=== PATIENT | male | born 1965 | race African-American/Black ===

== ENCOUNTER 2020-11-15 07:03 | Inpatient (IN) | payer OTHER ==
[2020-11-15 07:52] VITALS: BMI 23.7
[2020-11-15 09:31] LABS: BASO % 1.8 % (0-2.0); EOS % 2.3 % (0-4.5); HEMATOCRIT 40.7 % (35.4-49); HEMOGLOBIN 13.9 GM/dL (11.7-16.9); MCH 30.8 pg (25.7-33.7); MCHC 34.2 g/dl (32.0-35.9); MEAN CELL VOLUME 90.1 fl (80-96); MEAN PLT VOLUME 7.7 fl (7.5-11.1); NEUT % 51.9 % (42.8-82.8); PLATELET COUNT 261 K/MM3 (134-434); RBC 4.52 M/mm3 (4.00-5.60); RDW 13.5 % (11.9-15.9)
[2020-11-15 09:39] LABS: INR 1.06 (0.83-1.09); PROTHROMBIN TIME (PATIENT) 12.8 SEC (9.7-13.0)
[2020-11-15 09:42] LABS: ACTIVATED PTT 30.9 SECONDS (25.2-36.5)
[2020-11-15 10:24] LABS: CHOLESTEROL 202 mg/dL (50-200); HDL CHOLESTEROL 63 mg/dL (40-60)
[2020-11-15 10:25] LABS: LDL CHOLESTEROL (ONLY SJRH) 115 mg/dL (5-100); TRIGLYCERIDES 65 mg/dL (0-150)
[2020-11-15 10:28] LABS: ALBUMIN 3.6 g/dl (3.4-5.0)
[2020-11-15 10:29] LABS: BLOOD UREA NITROGEN 10.2 mg/dL (7-18); CALCIUM 9.3 mg/dL (8.5-10.1)
[2020-11-15 10:31] LABS: CREATININE 0.7 mg/dL (0.55-1.3)
[2020-11-15 10:33] LABS: BILIRUBIN,TOTAL 0.5 mg/dL (0.2-1); TOT PROT 7.8 g/dl (6.4-8.2)
[2020-11-15] MEDS ORDERED: ATORVASTATIN CA 40 MG TABLET (FP) PO ONE (11:20)
[2020-11-15] MEDS ORDERED: ASPIRIN 81 MG CHEWABLE TABLETS PO ONE (11:20)
[2020-11-15] MEDS ORDERED: ASPIRIN 81 MG CHEWABLE TABLETS ONE (11:22)
[2020-11-15] MEDS ORDERED: ATORVASTATIN CA 80 MG TABLET (FP) ONE (11:22)
[2020-11-15] MEDS: ENOXAPARIN NA (PORCINE) 40 MG/0.4 ML DISP.SYRIN SQ SCH (13:30)
[2020-11-16 00:01] LABS: URINE APPEARANCE CLEAR; URINE BILIRUBIN NEGATIVE (NEGATIVE); URINE COLOR YELLOW; URINE GLUCOSE (UA) NEGATIVE (NEGATIVE); URINE KETONE 1+ (NEGATIVE); URINE LEUK ESTERASE NEGATIVE (NEGATIVE); URINE NITRITE NEGATIVE (NEGATIVE); URINE PROTEIN NEGATIVE (NEGATIVE)
[2020-11-16] MEDS: ENOXAPARIN NA (PORCINE) 40 MG/0.4 ML DISP.SYRIN SQ SCH (09:31)
[2020-11-16] MEDS ORDERED: HALOPERIDOL DECANOATE 100 MG/ML IM ONE (16:00)
[2020-11-16] MEDS ORDERED: PT OWN MED DRAWER 7, Y5N ONE (16:41)
[2020-11-17 07:34] LABS: HEMATOCRIT 41.1 % (35.4-49); MCH 30.5 pg (25.7-33.7); MCHC 34.2 g/dl (32.0-35.9); MEAN CELL VOLUME 89.3 fl (80-96); PLATELET COUNT 240 K/MM3 (134-434); RDW 13.5 % (11.9-15.9); WHITE BLOOD COUNT 4.9 K/mm3 (4.0-10.0)
[2020-11-17 08:14] LABS: CREATININE 0.6 mg/dL (0.55-1.3)
[2020-11-17] MEDS ORDERED: HALOPERIDOL DECANOATE 100 MG/ML IM ONE (10:00)
[2020-11-17] MEDS: ENOXAPARIN NA (PORCINE) 40 MG/0.4 ML DISP.SYRIN SQ SCH (10:12)
[2020-11-18] MEDS: ENOXAPARIN NA (PORCINE) 40 MG/0.4 ML DISP.SYRIN SQ SCH (10:06)
[2020-11-18 15:15] VITALS: BP 111/68; PULSE 82; TEMP 98.7
== END 2020-11-18 19:21 | DRG 948 ==
LOC: JER 07:03 → JERBED 10:39 → J4W 22:30
PROVIDERS: ADMIT Internal Medicine; ATTEND Internal Medicine
DX: R53.1 Weakness (principal); I69.354 Hemiplegia and hemiparesis following cerebral infarction affecting left non-dominant side; E46 Unspecified protein-calorie malnutrition; F20.9 Schizophrenia, unspecified; R47.1 Dysarthria and anarthria; R47.81 Slurred speech; M51.26 Other intervertebral disc displacement, lumbar region; Z68.23 Body mass index [BMI] 23.0-23.9, adult
CPT/HCPCS: 36415; 70450-TC; 70551-TC; 71045-TC-FY; 72131-TC; 72170-TC-FY; 80048; 80053; 80061; 81003; 83721; 83735; 84443; 85025; 85027; 85610; 85730; 87086; 93005; 93010; 93880-TC; 97116-GP; 97162-GP; 99285-25; C9803; U0003; U0005